=== PATIENT | female | born 1950 | race American Indian/Alaskan Native ===

== ENCOUNTER 2018-02-04 09:44 | Outpatient (CLI) | payer MEDICARE ==
[2018-02-04 10:26] LABS: Blood Urea Nitrogen 12 mg/dL (7-17)
--- NOTE | 2018-02-04 11:44 | Magnetic Resonance Report ---
MRI BRAIN WITH AND WITHOUT CONTRAST INDICATION: Memory loss. COMPARISON: None similar at this institution. FINDINGS: Pre-and post contrast multiplanar and multisequence MRI of the brain utilizing 15 ml MultiHance intravenously demonstrate normal sulci. Symmetric ventricles appear dilated somewhat out of proportion for the sulci, yet maybe considered overall age-appropriate. Mild anterior and moderate posterior enlargement of the frontal horns noted as on axial series 6, image 15. Third ventricle also dilated. Fourth ventricle appears unremarkable and maintains midline. Bilateral temporal horn enlargement/dilatation also seen. Mild to moderate periventricular and few white matter FLAIR and T2 weighted hyperintensities may represent microvascular changes and/or some transependymal edema. No acute infarct, hemorrhage, mass effect or midline shift. No abnormal extra axial masses or fluid collections. Normal major intracranial vascular flow voids. Few small ganglionic lacunar infarcts may measure up to 5 mm on the left, axial image 12. Small 3-4 mm lacunar infarct in the mar[place] on the right may also be noted. Otherwise normal posterior fossa with preserved basilar cisterns and symmetric seventh and eighth nerve complexes. No focal suspicious abnormal enhancement. Bilateral cataract surgery. Mild leftward nasal septal deviation. Grossly clear imaged paranasal sinuses and mastoid air cells. Normal midline structures without evidence of Chiari malformation. CONCLUSION: Ventricular enlargement appearing disproportionate to the sulci, as described. Please also correlate clinically for various differential considerations including aqueductal stenosis, normal pressure hydrocephalus or primarily central atrophy, amongst others. Thank you for the opportunity to participate in this patient's care.
== END 2018-02-04 09:45 | disposition home or self-care (01) ==
LOC: MRI 09:44
PROVIDERS: ATTEND Family Medicine
DX: R41.3 Other amnesia (principal); J34.2 Deviated nasal septum
CPT/HCPCS: 36415; 70553; 82565; 84520; A9577

== ENCOUNTER 2019-08-30 09:30 | Outpatient (CLI) | payer MEDICARE ==
--- NOTE | 2019-08-30 12:53 | Mammography Report ---
DIGITAL SCREENING MAMMOGRAM WITH CAD, 08/30/2019 INDICATION: Routine screening mammography. TECHNIQUE: Digital bilateral 2D mammography was obtained in the craniocaudal and mediolateral obliq ue projections. This examination was interpreted with the benefit of Computer-Aided Detection analysi s. COMPARISON: None available. FINDINGS: Breast Density: The breasts are almost entirely fatty. There is no evidence of dominant mass, suspicious calcifications or architectural distortion in eithe r breast. A few scattered bilateral benign calcifications. IMPRESSION: No mammographic evidence of malignancy. Follow up recommendation: Routine yearly BI-RADS Category 2: Benign. A "normal" or negative report should not discourage follow up or biopsy of a clinically significant f inding. A written summary of these findings will be mailed to the patient. The patient will be entered into a mammography reporting system which will generate a reminder letter for the patient's next appointmen t at the appropriate interval. The [employer] recommends yearly mammograms starting at age 40 and continuing as l felice as a woman is in good health. Breast MRI is recommended for women with an approximate 20-25% or greater lifetime risk of breast cancer, including women with a strong family history of breast or ova anamika cancer or who have been treated for Hodgkin's disease. Signer Name: Yamil Frederick MD Signed: 08/30/2019 12:49 PM Workstation Name: [id number]
--- NOTE | 2019-08-30 12:55 | Mammography Report ---
BONE DEXA CLINICAL: Postmenopausal. TECHNIQUE: 2 site bone DEXA performed on an Hologic scanner. FINDINGS: The average BMD of the lumbar spine L1-L4 is 1.388g/cm squared with a T score of +3.1 and a Z score o f +4.5. Moderate endplate sclerosis at L2-3, L3-4 and L4-5. The average total BMD of the left hip is 0.873 g/cm squared with a T score of -0.6and a Z score of +0 .1. IMPRESSION: 1. WHO classification: Normal with average fracture risk based on spine measurements. 2. WHO classification Normal with average fracture risk based on left hip measurements. RECOMMENDATION: Clinical correlation and routine screening. Definitions: BMD equal bone mineral density T score = BMD related to peak bone mass of young adult (Robby expressed an standard deviation) Z score = age-matched BMD expressed in SD World health organization (WHO) diagnostic criteria Normal T score greater than equal to 1 standard deviation Osteopenia T score between -1 and -2.4 standard deviation Osteoporosis T score -2.5 standard deviation or below. Note: BMD is not the only risk factor for fracture; also consider factors such as the patient's age, risk of falling, previous osteoporotic fracture, family history of osteoporotic fractures, current sm oker and low body weight. Z scores are not calculated if greater than 80 years of age. Signer Name: Yamil Frederick MD Signed: 08/30/2019 12:51 PM Workstation Name: [id number]
== END 2019-08-30 09:31 | disposition home or self-care (01) ==
LOC: MAMMO 09:30
PROVIDERS: ATTEND Family Medicine
DX: Z12.31 Encounter for screening mammogram for malignant neoplasm of breast (principal); Z78.0 Asymptomatic menopausal state; N64.89 Other specified disorders of breast
CPT/HCPCS: 77067; 77080